=== PATIENT | male | born 1950 | race Caucasian/White ===

== ENCOUNTER 2020-07-13 09:03 | Emergency (ER) | payer OTHER, SELFPAY ==
[2020-07-13 09:04] VITALS: BP 152/88; PULSE 104; RESP 16; TEMP 36.3; O2SAT 96; BMI 25.1
[2020-07-13 09:05] VITALS: BP 152/88; PULSE 104; RESP 16; TEMP 36.3; O2SAT 96
--- NOTE | 2020-07-13 09:14 | RAD_ITS ---
STUDY: X-RAY CHEST REASON FOR EXAM: Male, 70 years old. Cough for 2 days, fever and shortness of breath. TECHNIQUE: Single AP portable view of the chest. COMPARISON: None. FINDINGS: The lungs are clear and expanded. There is no demonstrated pleural abnormality. Normal size heart. Normal mediastinum and ananya. Normal visualized pulmonary arteries. There is atherosclerotic calcification of the aortic arch with tortuosity. There are diffuse degenerative changes of the visualized thoracic spine. There is degenerative osteoarthritis of the bilateral shoulders worse on the left side. There is no demonstrated abnormality of the visualized soft tissue structures of the upper abdomen. RAD/Chest 1 View (Portable) IMPRESSION: No active pulmonary disease. Electronically Signed: Ryan Abarca MD at 10:16 EDT Tel , Service support ,
--- NOTE | 2020-07-13 09:16 | ED.DCSUM_ITS ---
- ER Visit Summary Date of Service: 07/13/20 Chief Complaint: Cough History of Present Illness: The patient is a [address] Guardado. He reports he has a cough began 1 week ago. It is nonproductive. He had a fever to 102 degrees. He also complains of chills and myalgias. He reports that he has shortness of breath that is moderate in severity. It is increased with coughing, exertion, or laying flat. Reports she has chest pain on the lower right that is 10 out of 10 at worst and 2 out of 10 currently. Increased with coughing. Patient denies any personal family history of DVT. However, he recently returned from [place]. He does report that he wears masks when he is out. He has had sick contacts as his is ill. He is unsure of [place] exposure. Physical Examination: Vitals: Stable. Afebrile. General: Well-nourished and well-developed. Head: Normocephalic atraumatic. Neck: Supple, no lymphadenopathy. No JVD. Nontender. Cardiovascular: Regular rate and rhythm. No murmurs. Respiratory: No respiratory distress. Clear to auscultation bilaterally. Abdominal: Soft, nontender, nondistended, normal bowel sounds. No guarding, rebound, or peritoneal signs. Back: Nontender. Extremities: Nontender, no edema. Skin: Normal color, no rash. Neurologic: Alert and oriented ?3. Cranial nerves II through XII are intact. Normal strength and sensation. Psych: Normal affect. Test Results: CBC shows a white count of 3.7 with 15 monocytes. Chem-7 shows a calcium of 8.4. Lactic acid is 1.6. D-dimer is 0.72 which is negative when corrected for his age. Clinical Impression(s) from Imaging Studies Chest X-Ray 07/13/20 09:14 IMPRESSION: No active pulmonary disease. Electronically Signed: Ryan Abarca MD at 10:16 EDT Tel , Service support , Emergency Department Course and Treatment: Patient refused testing for coronavirus. He is resting comfortably. I discussed the patient that he likely does have COVID-19. He does not want to be tested for this. He wants to go home and isolate himself. Treatment Plan: Instructed patient that he likely does have a COVID-19. He is instructed to quarantine. Return to the emergency department for worsening difficulty breathing. Otherwise follow-up with his primary care physician in 10 to 14 days if not improving. Disposition: To home in improved and stable condition. Impression: 1. URI, possible COVID-19 infection. This note was generated with [employer] dictation software. It may contain incorrect words, spelling, and punctuation that were not noted in review of the chart prior to signing ED Disposition - Plan for ED Patient: Instructions: ED Upper Resp Infec No Abx Tx Referrals: Shay Guardado MD [Primary Care Provider] - 10-14 Days if not better
[2020-07-13 09:38] LABS: Absolute Lymphocyte Count 0.82 X10^3/uL (0.83-4.51); Absolute Neutrophil Count 2.3 X10^3/uL (2.0-7.7); Basophil# 0.01 X10^3/uL; Basophil% 0.3 % (0-1); Hematocrit 42.8 % (40-54); Hemoglobin 13.7 g/dL (13.0-16.5); Lymphocyte # 0.82 X10^3/ul (4.0); Mean Corpuscular Hgb 28.9 pg (27.0-32.0); Mean Corpuscular Volume 90.3 fL (80-94); Mean Platelet Vol. 9.7 fl (6.2-12.0); Monocyte# 0.56 X10^3/uL; NRBC Flagged by Analyzer 0 % (0-5); Neutrophil # 2.32 X10^3/uL (2.7-7.7); Neutrophil % 62.2 % (47-70); Platelet Count 214 K/mm3 (150-450); RBC Distribution Width CV 13.6 % (11.6-14.6); RBC Distribution Width SD 45.6 fl (35.1-43.9); Red Blood Count 4.74 M/mm3 (4.6-6.2); White Blood Count 3.7 K/mm3 (4.4-11.0)
[2020-07-13 10:19] LABS: D-Dimer Quantitative (DVT/PE) 0.72 FEU/ug/m (0.27-0.49)
[2020-07-13 10:21] LABS: Anion Gap 5 (5-15); BUN 15 mg/dL (7-18); BUN/Creat Ratio 15.2 RATIO (10-20); Calcium,Total 8.4 mg/dL (8.5-10.1); Chloride 104 mmol/L (98-107); Creatinine, Serum 0.99 mg/dL (0.70-1.30); EST Glomerular Filtration Rate 79 mL/min (>60); Est Glom Filt Rate - Afr Amer 96 mL/min (>60); Estimated Creatinine Clearance 71.84 ml/min; Glucose 94 mg/dL (74-106); Lactic Acid 1.6 mmol/L (0.4-1.9); Potassium 4.3 mmol/L (3.5-5.1); Sodium Level 138 mmol/L (136-145)
[2020-07-13 11:29] VITALS: PULSE 87; RESP 16; O2SAT 97
== END 2020-07-13 11:30 | disposition home or self-care (01) ==
LOC: ED 09:54
PROVIDERS: Emergency Provider Emergency Medicine; PCP Family Medicine
DX: J06.9 Acute upper respiratory infection, unspecified (principal); R19.7 Diarrhea, unspecified; Z20.828 Contact with and (suspected) exposure to other viral communicable diseases
CPT/HCPCS: 71045; 80048; 83605; 85025; 85379; 99284; A4216

== ENCOUNTER 2020-08-29 07:01 | Day surgery (SDC) | payer SELFPAY, OTHER ==
[2020-08-29 07:17] VITALS: BP 132/90; PULSE 99; RESP 18; TEMP 37.1; O2SAT 99; BMI 29.9
[2020-08-29] MEDS: Lactated Ringers 1,000 ML 100 ML IV (07:32)
--- NOTE | 2020-08-29 08:30 | COLBX_PTH ---
PATIENT: RONALDO BARRERA LOC: EN U#:[id number] AGE/SX: 70/M ROOM: RE08/29/[address]: Dr. Moustapha Mota MD : 1950 BED: DIS: 08/29/2020 SPEC #: [id number] RECD: 08/29/20 12:03 STATUS: NESSA TERESA #: [id number] SAM: 08/29/20 08:[address]: Moustapha Mota DEPT: SURGICAL PATHOLOGY RECD BY: Nelda Goldstein ENTERED: 08/29/20 13:00 SP TYPE: COLON BX OTHR DR: Dr. Shay Guardado MD Tissues: Descending colon Procedures: Surgery Specimen Level IV HEADER OPERATION: Colonoscopy - open access (MAC) PRE-OP DIAGNOSIS: Screening TISSUE SUBMITTED: Descending colon polyp MICROSCOPIC DIAGNOSIS Descending colon polyp, biopsy: Tubular adenoma. AM:vikki 09/01/20 MICROSCOPIC DESCRIPTION Slides are reviewed. GROSS DESCRIPTION Received in fixative is one container labeled with the patient's name and designated descending colon polyp. The specimen consists of multiple irregular fragments of light borjas soft tissue that in aggregate measure 0.7 x 0.3 x 0.1 cm. The specimen is totally submitted in one cassette. / AM:vikki 08/31/20 TC:5 CPT: 08164
--- NOTE | 2020-08-29 08:39 | HP_ITS ---
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 Moustapha Mota MD) Smoking Status: Former smoker HPI HPI HPI: RONALDO BARRERA, is a 70 M who presents to the office today for HPI HPI Surgical H&P: Yes HPI: RONALDO BARRERA, is a 70 M who presents to the office today for History of colon polyps. The patient had a colonoscopy in 2017 and had 3 adenomatous polyps. Patient is not having any blood in his stool or abdominal pain. Patient recently had symptoms suggestive of Covid at the beginning of July. At the current time patient still has some lingering cough but he is not having any fevers or fatigue at this time. ROS General General: Yes fatigue; no weight change, appetite, colon cancer, breast cancer or weakness HEENT HEENT: No difficulty swallowing, eye injury, eye surgery, swollen glands or hoarseness Endo Endocrine: No thyroid disease, diabetes mellitus, thyroid cancer, Hair loss, heat intolerance or cold intolerance Musc Musculoskeletal: Yes back problems; no arthritis, rheumatoid arthritis, gout or joint pain Cardio Cardiovascular: No murmur, pacemaker, heart disease, atrial fibrillation, high blood pressure, heart attack, heart stent, palpitations, shortness of breat with exertion or chest pain Psych Psychiatric: No depression, anxiety or hearing voices Resp Respiratory: No shortness of breath, No sleep apnea, No cough, No COPD, No asthma, No emphysema, No wheezing Gastro Gastrointestinal: No abdominal pain, No nausea or vomiting, No diarrhea, No constipation, No blood in stool, No acid reflux, No hemorrhoids, No ulcers, No gallbladder problem, No black,tarry stools Andrea Hematologic: No blood thinners, No blood disorders, No bleeding, No anemia, No blood clots Neuro Neurologic: No weakness Exam Const General: cooperative Orientation: alert, oriented x3 Resp Effort & Inspection: normal respiratory effort Auscultation: clear to auscultation bilaterally Cardio Rate: regular rate Rhythm: regular rhythm Heart Sounds: no murmurs GI Inspection: non-distended Palpation: soft, nontender Assessment & Plan Problems 1. History of adenomatous polyp of colon Z86.010 Plan Patient had 3 tubular adenomas back in 2016 and repeat colonoscopy was recommended for 3 years. Patient is not complaining of any Abdominal pain or blood in his stool. The patient recently had symptoms suggestive of Covid but did not have a positive test at that time. I recommend performing a colonoscopy in the middle of August as this will be at least 28 days from the time of his sickness. Patient will have Covid testing before procedure. I explained endoscopy in detail to the patient. I explained the risks including but not limited to stroke or heart attack with anesthesia, perforation of the GI tract, bleeding, infection. I explained that any of these could necessitate further emergency surgery. The patient understands and all questions were answered sufficiently. The patient wishes to proceed with procedure. We discussed the current risks associated with COVID-19. While it is understood that there is a community spread of COVID-19, the risk of kristel COVID-19 while at [facility] ([facility]) is very low; however, the risk cannot be completely mitigated because of the community spread of the disease. We discussed in detail the risk of exposure to and/or potential harm posed by the COVID-19 virus with having a surgery/procedure at this time versus the risk of delaying the surgery/procedure. It is not possible to know either the risk of delaying the surgery or procedure or chance of getting an infection with perfect accuracy, but a joint decision was made to proceed at this time with the scheduled surgery/procedure as indicated on the consent form. Patient was notified that we will need to comply with any screening or testing [facility] wishes to perform or that surgery may be delayed for any positive results. Moustapha Mota MD Pager: [facility] [address] [place] [address] [address] [place] [address] Office: Orders Orders: Colonoscopy Today Z86.010 Coding Level of Care Code Off vis,est,level 3 Diagnoses History of adenomatous polyp of colon Z86.010 I have re-examined the patient. There are no clinical changes since date of exam.
--- NOTE | 2020-08-29 08:46 | OP.CCLET_ITS ---
08/29/2020 Shay Guardado [address] [place] [address] Re : Colonoscopy procedure for Adam Jamesyer Dear Dr. Guardado This procedure was performed on Saturday, August 29, 2020. My impressions and recommendations are as follows: Impressions : - One small polyp in the descending colon, removed with a hot snare. Resected and retrieved. - The examination was otherwise normal on direct and retroflexion views. Recommendations : - Discharge patient to home. - Resume previous diet. - Continue present medications. - Await pathology results. - Repeat colonoscopy in 5 years for surveillance. My findings are described in the full procedure note, which is enclosed. If I can be of further assistance, please feel free to contact me at Doctor phone number(s): , Work: . Sincerely, Moustapha Mota MD 08/29/2020 8:45:57 AM This report has been signed electronically.
--- NOTE | 2020-08-29 08:46 | OP.COLON_ITS ---
Patient Name: Adam Garza Procedure Date: 08/29/2020 8:22 AM Date of : 1950 Age: 70 Procedure: Colonoscopy Indications: High risk colon cancer surveillance: Personal history of multiple (3 or more) adenomas Providers: Moustapha Mota MD Referring MD: Shay Guardado Medicines: Monitored Anesthesia Care Patient Profile: This is a 70 year old male. Refer to note in patient chart for documentation of history and physical. Last Colonoscopy: 3 years ago. Complications: No immediate complications. Estimated blood loss: Minimal. Procedure: Pre-Anesthesia Assessment: - Prior to the procedure, a History and Physical was performed, and patient medications and allergies were reviewed. The patient's tolerance of previous anesthesia was also reviewed. The risks and benefits of the procedure and the sedation options and risks were discussed with the patient. All questions were answered, and informed consent was obtained. Prior Anticoagulants: The patient has taken no previous anticoagulant or antiplatelet agents. After reviewing the risks and benefits, the patient was deemed in satisfactory condition to undergo the procedure. After I obtained informed consent, the scope was passed under direct vision. Throughout the procedure, the patient's blood pressure, pulse, and oxygen saturations were monitored continuously. The colonoscope was introduced through the anus and advanced to the cecum, identified by appendiceal orifice and ileocecal valve. The colonoscopy was performed without difficulty. The patient tolerated the procedure well. The quality of the bowel preparation was good. Scope In: 8:29:40 AM Scope Withdrawal Time 0 hours 7 minutes 18 seconds Scope Out: 8:42:46 AM Total Procedure Duration Time 0 hours 13 minutes 6 seconds Findings: A small polyp was found in the descending colon. The polyp was removed with a hot snare. Resection and retrieval were complete. The exam was otherwise without abnormality on direct and retroflexion views. Impression: - One small polyp in the descending colon, removed with a hot snare. Resected and retrieved. - The examination was otherwise normal on direct and retroflexion views. Recommendation: - Discharge patient to home. - Resume previous diet. - Continue present medications. - Await pathology results. - Repeat colonoscopy in 5 years for surveillance. Procedure Code(s): --- Professional --- 07584, Colonoscopy, flexible; with removal of tumor(s), polyp(s), or other lesion(s) by snare technique Diagnosis Code(s): --- Professional --- Z86.010, Personal history of colonic polyps D12.4, Benign neoplasm of descending colon CPT copyright 2017 [employer]. All rights reserved. The codes documented in this report are preliminary and upon polisher aluminum review may be revised to meet current compliance requirements. Moustapha Mota MD 08/29/2020 8:45:57 AM This report has been signed electronically. Number of Addenda: 0 Note Initiated On: 08/29/2020 8:22 AM
[2020-08-29 08:48] VITALS: BP 102/74; BP 132/90; PULSE 82; RESP 16; TEMP 36.8; O2SAT 98
[2020-08-29 08:50] VITALS: BP 113/85; BP 132/90; PULSE 84; RESP 16; O2SAT 97
[2020-08-29 08:55] VITALS: BP 119/83; BP 132/90; PULSE 79; RESP 16; O2SAT 96
[2020-08-29 09:00] VITALS: BP 117/82; BP 132/90; PULSE 77; RESP 16; TEMP 36.6; O2SAT 96
[2020-08-29 09:19] VITALS: BP 132/90
== END 2020-08-29 09:20 | disposition home or self-care (01) ==
LOC: EN 07:02 → AC 07:03
PROVIDERS: PCP Family Medicine; Referring Provider Family Medicine; Visit Provider Surgery
PROC: 0DJD8ZZ Inspection of Lower Intestinal Tract, Via Natural or Artificial Opening Endoscopic (ICD-10-PCS; CPT 45378; principal; 2020-08-29 08:25)
DX: D12.4 Benign neoplasm of descending colon (principal); Z86.010 Personal history of colon polyps; Z87.891 Personal history of nicotine dependence
CPT/HCPCS: 45385; 87426; 88305; C9803; J7120; J1610; J2405

== ENCOUNTER → 2020-12-30 12:19 | Outpatient (CLI) | payer SELFPAY, OTHER ==
--- NOTE | 2020-12-30 12:21 | RAD_ITS ---
INDICATION: FACET ARTHROPATHY -- left knee pain goes up into the left hip and left back EXAMINATION/TECHNIQUE: X-RAY - XR Spine Lumbar 2 or 3 Views COMPARISON: None. FINDINGS: VERTEBRAE: Preserved vertebral body height. No fracture. 5 mm of anterolisthesis of L5 on S1. Preservation of the normal lumbar lordosis. Facet hypertrophic arthropathy. Mild dextroscoliosis centered at L2. DISCS: Disc spaces are narrow. INCLUDED ABDOMEN: Included bowel gas pattern is non-obstructive. RAD/Lumbar Spine 2 or 3 Views IMPRESSION: Mild dextroscoliosis with diffuse degenerative disc disease with 5 mm of anterolisthesis of L5 on S1. Electronically Signed: Anson Watkins MD at 7:20 EDT Tel , Service support ,
== END ==
PROVIDERS: PCP Family Medicine; Referring Provider Family Medicine; Visit Provider Family Medicine
DX: M47.819 Spondylosis without myelopathy or radiculopathy, site unspecified (principal)
CPT/HCPCS: 72100

== ENCOUNTER → 2021-01-15 15:25 | Outpatient (CLI) | payer OTHER, SELFPAY ==
[2021-01-15 18:44] LABS: PSA,Total - Annual Screen 1.43 ng/mL (0.00-4.00)
== END ==
PROVIDERS: PCP Family Medicine; Referring Provider Family Medicine; Visit Provider Family Medicine
DX: Z12.5 Encounter for screening for malignant neoplasm of prostate (principal)
CPT/HCPCS: 36415; 84153; G0103

== ENCOUNTER → 2023-01-31 | Outpatient (CLI) | payer OTHER, SELFPAY ==
[2023-01-31 10:41] LABS: Absolute Lymphocyte Count 1.39 X10^3/uL (0.83-4.51); Absolute Neutrophil Count 3.7 X10^3/uL (2.0-7.7); Basophil# 0.04 X10^3/uL; Basophil% 0.7 % (0-1); Eosinophil# 0.18 X10^3/uL; Erythrocyte Sedimentation Rate 9 mm/hr (0-20); Hematocrit 44.7 % (40-54); Hemoglobin 14.4 g/dL (13.0-16.5); Lymphocyte # 1.39 X10^3/ul (0.83-4.51); Lymphocyte % 23.5 % (19-41); Mean Corp Hgb Conc 32.2 g/dL (32-36); Mean Corpuscular Hgb 28.9 pg (27.0-32.0); Mean Corpuscular Volume 89.6 fL (80-94); Mean Platelet Vol. 9.8 fl (6.2-12.0); Monocyte# 0.57 X10^3/uL; Monocyte% 9.6 % (0-10); NRBC Flagged by Analyzer 0 % (0-5); Neutrophil % 62.7 % (47-70); Platelet Count 286 K/mm3 (150-450); RBC Distribution Width CV 13.7 % (11.6-14.6); Red Blood Count 4.99 M/mm3 (4.6-6.2); White Blood Count 5.9 K/mm3 (4.4-11.0)
[2023-01-31 10:55] LABS: Hemoglobin A1c 5.9 % (3.8-5.6)
[2023-01-31 10:58] LABS: AST(SGOT) 14 U/L (15-37); Alanine Aminotransfer ALT/SGPT 19 U/L (16-61); Albumin, Serum 3.3 g/dL (3.2-5.0); Alkaline Phosphatase 78 U/L (45-117); Anion Gap 3 (5-15); BUN 16 mg/dL (7-18); CRP < 2.90 mg/L (0.0-3.0); Calcium,Total 8.5 mg/dL (8.5-10.1); Chloride 107 mmol/L (98-107); Creatinine, Serum 0.84 mg/dL (0.70-1.30); EST Glomerular Filtration Rate 95 mL/min (>60); Est Glom Filt Rate - Afr Amer 114 mL/min (>60); Globulin 3.4 g/dL (2.2-4.2); Glucose 95 mg/dL (74-106); Potassium 4.2 mmol/L (3.5-5.1); Protein, Total 6.7 g/dL (6.4-8.2); Sodium Level 137 mmol/L (136-145); Uric Acid 5.4 mg/dL (3.5-7.2)
[2023-02-01 13:08] LABS: ANTINUCLEAR ANTIBODIES DIRECT Negative (Negative)
[2023-02-08 12:09] LABS: HLA B27 Negative (.)
== END | disposition home or self-care (01) ==
LOC: LAB 09:50
PROVIDERS: PCP Family Medicine; Referring Provider Podiatrist; Visit Provider Podiatrist
DX: M79.674 Pain in right toe(s) (principal)
CPT/HCPCS: 36415; 80053; 81374; 83036; 84550; 85025; 85652; 86038; 86140

== ENCOUNTER → 2023-04-01 | Outpatient (CLI) | payer SELFPAY, OTHER ==
--- NOTE | 2023-04-01 12:43 | RAD_ITS ---
EXAM: XR CHEST, 2 VIEWS CLINICAL INDICATION: PRE OP TECHNIQUE: Frontal and lateral views of the chest. COMPARISON: 07/13/2020 FINDINGS: LUNGS AND PLEURAL SPACES: Unremarkable. No consolidation or edema. No pneumothorax. No effusion. HEART: Unremarkable. Cardiac silhouette not enlarged. MEDIASTINUM: Central airways and mediastinal contour are unremarkable. BONES/JOINTS: Unremarkable. SOFT TISSUES: Unremarkable. RAD/Chest PA and Lateral IMPRESSION: No radiographic evidence of acute cardiopulmonary disease. Electronically Signed: Matthew Rosenberg MD at 23:59 EDT ,
[2023-04-01 13:42] LABS: Hemoglobin 13.5 g/dL (13.0-16.5); Mean Corp Hgb Conc 32.1 g/dL (32-36); Mean Corpuscular Hgb 28.7 pg (27.0-32.0); Mean Corpuscular Volume 89.2 fL (80-94); Mean Platelet Vol. 9.8 fl (6.2-12.0); Platelet Count 285 K/mm3 (150-450); RBC Distribution Width CV 14.3 % (11.6-14.6); RBC Distribution Width SD 46.5 fl (35.1-43.9); Red Blood Count 4.71 M/mm3 (4.6-6.2); White Blood Count 6.8 K/mm3 (4.4-11.0)
[2023-04-01 13:44] LABS: Anion Gap 4 (5-15); BUN 24 mg/dL (7-18); BUN/Creat Ratio 27.6 RATIO (10-20); Calcium,Total 8.6 mg/dL (8.5-10.1); Chloride 108 mmol/L (98-107); Creatinine, Serum 0.87 mg/dL (0.70-1.30); EST Glomerular Filtration Rate 91 mL/min (>60); Est Glom Filt Rate - Afr Amer 110 mL/min (>60); Glucose 99 mg/dL (74-106); Potassium 3.8 mmol/L (3.5-5.1); Sodium Level 141 mmol/L (136-145)
== END | disposition home or self-care (01) ==
LOC: PSN 12:23
PROVIDERS: PCP Family Medicine; Referring Provider Orthopaedic Surgery; Visit Provider Orthopaedic Surgery
DX: Z01.818 Encounter for other preprocedural examination (principal); Z01.811 Encounter for preprocedural respiratory examination
CPT/HCPCS: 36415; 71046; 80048; 85027; 93005

== ENCOUNTER → 2023-11-16 | Outpatient (CLI) | payer OTHER, SELFPAY ==
[2023-11-16 10:04] LABS: Absolute Lymphocyte Count 1.94 X10^3/uL (0.83-4.51); Absolute Neutrophil Count 3.2 X10^3/uL (2.0-7.7); Basophil# 0.05 X10^3/uL; Basophil% 0.8 % (0-1); Eosinophil# 0.23 X10^3/uL; Eosinophils% 3.7 % (0-5); Hematocrit 43.8 % (40-54); Hemoglobin 14.1 g/dL (13.0-16.5); Lymphocyte # 1.94 X10^3/ul (0.83-4.51); Lymphocyte % 31.4 % (19-41); Mean Corp Hgb Conc 32.2 g/dL (32-36); Mean Corpuscular Hgb 28.9 pg (27.0-32.0); Mean Corpuscular Volume 89.8 fL (80-94); Mean Platelet Vol. 9.7 fl (6.2-12.0); Monocyte# 0.75 X10^3/uL; Monocyte% 12.1 % (0-10); NRBC Flagged by Analyzer 0 % (0-5); Neutrophil # 3.19 X10^3/uL (2.7-7.7); Neutrophil % 51.7 % (47-70); Platelet Count 290 K/mm3 (150-450); RBC Distribution Width CV 14.2 % (11.6-14.6); RBC Distribution Width SD 46.7 fl (35.1-43.9); Red Blood Count 4.88 M/mm3 (4.6-6.2); White Blood Count 6.2 K/mm3 (4.4-11.0)
[2023-11-16 11:37] LABS: ALB/GLOB Ratio 1.1 RATIO (0.9-2.4); AST(SGOT) 13 U/L (15-37); Alanine Aminotransfer ALT/SGPT 18 U/L (16-61); Albumin, Serum 3.5 g/dL (3.2-5.0); Alkaline Phosphatase 74 U/L (45-117); Anion Gap 3 (5-15); BUN 31 mg/dL (7-18); BUN/Creat Ratio 37.9 RATIO (10-20); Calcium,Total 9.2 mg/dL (8.5-10.1); Chloride 106 mmol/L (98-107); Creatinine, Serum 0.82 mg/dL (0.70-1.30); EST Glomerular Filtration Rate 98 mL/min (>60); Est Glom Filt Rate - Afr Amer 118 mL/min (>60); Globulin 3.3 g/dL (2.2-4.2); Glucose 89 mg/dL (74-106); Potassium 3.7 mmol/L (3.5-5.1); Protein, Total 6.8 g/dL (6.4-8.2); Sodium Level 136 mmol/L (136-145)
== END | disposition home or self-care (01) ==
LOC: MFPLAB 09:24
PROVIDERS: PCP Family Medicine; Visit Provider Family Medicine
DX: Z01.818 Encounter for other preprocedural examination (principal)
CPT/HCPCS: 36415; 80053; 85025

== ENCOUNTER → 2023-11-22 | Outpatient (CLI) | payer SELFPAY, OTHER ==
--- OUTSIDE RECORDS SUMMARY | 2023-11-22 06:05 | XMS RPT_ITS | CCD ---
Author Name Unknown Address [address] [place] [address] Organization [facility] Care Team Providers Care Tibco Developer Name Role Phone RIGOBERTO SALGADO DR Attending Unavailable RIGOBERTO SALGADO DR Primary Care Unavailable RIGOBERTO SALGADO DR Admitting Unavailable Results Test Name Value Interpretation Reference Range Facil ity Encounters Encounter Date Encounter Type Care Provider Facility Start: 04-11-2023 End: 04-11-2023 ambulatory [facility] Payers Date Payer Category Payer Unknown [id number] Unknown [id number] Summary Purpose Family History No Family History Records Found Advance Directives No Advanced Directives Records Found Additional Source Comments (unrecognized sect ion and content) No Status Records Found INFORMATION SOURCE (unrecogn ized section and content) FOR RECORDS PERTAINING TO PATIENTS WHO ARE OR HAVE BEEN ENROLLED IN A CHEMICAL DEPENDENCY/SUBSTANCEABUSE PROGRAM, SOME INFORMATION MAY BE OMITTED. This clinical summary was aggregated from multiple sources. Caution should be exercised in using it in the provision of clinical care. This summary normalizes information from multiple sources, and as a consequence, information in this document may materially change the coding, format and clinical context of patient data. In addition, data may be omitted in some cases. CLINICAL DECISIONS SHOULD BE BASED ON THE PRIMARY CLINICAL RECORDS. [employer] provides no warranty or guarantee of the accuracy or completeness of information in this document.
--- NOTE | 2023-11-23 13:09 | STRESSREP_ITS ---
Stress Test Report Date: 11/23/2023 Procedure: Exercise tolerance test/imaging study Indications: Preoperative evaluation Consent: Per the patient Procedure: The patient exercised on a Hira protocol for 6 minutes achieving a peak heart rate of 148 bpm (102% predicted maximal heart rate) with a peak blood pressure 164/82 mmHg and a peak MET capacity of 7 METs. The baseline ECG demonstrated normal sinus rhythm. The peak exercise ECG demonstrated no significant ischemic changes. EKG during recovery revealed no significant ischemic changes [There were no cardiac dysrhythmias pretest, during exercise, or recovery]. The functional capacity was considered very good for age. There was [no complaint of chest discomfort during exercise or recovery]. The examination was discontinued secondary to achieving target heart rate. Impression: 1. Technically adequate (percent predicted maximal heart rate greater than 85%) exercise tolerance test 2. Stress test is negative for exercise-induced EKG changes of ischemia 3. The test test is negative for exercise-induced chest pain 4. Functional capacity is very good for age 5. Nuclear images pending Myocardial perfusion imaging study: Technique: The patient was injected with 11.6 mCi of technetium 99m Cardiolite and subsequently rest SPECT Cardiolite nuclear imaging was obtained in the horizontal long, vertical long, and short axis views. The patient exercised on a Hira protocol. Please see above for details. The patient was injected with 31.5 mCi of technetium 99m Cardiolite and subsequently stress SPECT Cardiolite nuclear imaging was obtained in the horizontal long, vertical long, and short axis views. A gated Cardiolite study at peak stress was obtained. Interpretation: Rest and stress SPECT Cardiolite nuclear imaging status post realignment, normalization, and attenuation correction, demonstrates no evidence of significant ischemia or infarction. The gated Cardiolite study demonstrates no significant regional wall motion abnormalities. The reported LVEF is greater than 70%. Impression: 1. There is no evidence of significant ischemia or infarction. 2. The gated Cardiolite study reports an LVEF of greater than 70%. This note was generated with [employer] software. It may contain incorrect words, spelling, and punctuation that were not noted in checking the note before signing.
== END | disposition home or self-care (01) ==
PROVIDERS: PCP Family Medicine; Referring Provider Nurse Practitioner Family; Visit Provider Nurse Practitioner Family
DX: R94.31 Abnormal electrocardiogram [ECG] [EKG] (principal)
CPT/HCPCS: 78452; 93017; A9500; A4216

== ENCOUNTER 2024-02-03 09:00 | Outpatient (RCR) | payer SELFPAY, OTHER ==
--- NOTE | 2023-12-12 14:23 | HP.PTEVAL_ITS ---
Patient's Visit Information Visit Information Visit Information: RONALDO BARRERA is a 73 year old M referred to Physical Therapy by Dr. Pasuqale Spears MD with a diagnosis of R TKR 12/06/23. Date of Evaluation: 12/12/23 Physical Therapist: CARMENZA Orellana Visit Plan Frequency: 2-3x /Week Duration: 2 Months Plan: 2X-3X/ week for 8 weeks for R knee AROM, PROM, AAROM, gait training, stairs, strength with HEP HEP: towel gastroc stretch, QS, Heel slides (chair and supine), SLR, AP Subjective Subjective: Pt had a R TKR on 12-06-23. He is using a rolling walker. He is putting down full weight as much as he can stand but he does not trust his leg. He has stairs at home to get in and out of the house with 2 railing. He is sleeping good in a recliner. Pain R knee pain: Pain Intensity (Out of 10): 4 Pain Intensity Range: 8 Comment: with pain meds Objective Objective: Gait: walks with rolling walker with decrease R knee flexion and decrease stance time on the R LE. Walks with almost a straight knee with gait R knee AROM -5 knee ext and 85 knee flexion L knee AROM: 0 120 LE MMT R knee flex 7.5 and R knee ext 6.6 R knee infrapatella 39.5, mid patella 47, 6 suprapatella 53.2 Incision looks good with no signs of infection but he does have what seems to be an alergic reaction to the tape as he has 2 long vertical strips of reddness that are on either side of the patella about 2 inches away from center incision Balance/Special Test Scores WOMAC Total Score: 50 WOMAC Percentatge: 47.9200 Goals Goal 1:: I HEP Goal Time Frame: 4-6 Weeks Goal 2:: Increase R knee AROM 0-125 degrees flexion Goal Time Frame: 6-8 Weeks Goal 3:: Be able to walk without an AD and without an antalgic gait Goal Time Frame: 6-8 Weeks Goal 4:: Be able to go up and down steps recip with 1 hand rail without hesitation Goal Time Frame: 6-8 Weeks Rehabilitation Potential Rehabilitation Potential: Good Anticipated Interventions Patient/Client Instruction: Educate patient on: Condition and Plan of Care For the Purpose of:: To decrease pain, To decrease swelling/inflammation, To increase ROM, To improve nutrient delivery to tissue, To improve muscle performance and motor function, To improve ability to perform ADL's, To increase tolerance to activity/condition/position, To decrease level of supervision to perform tasks, To improve ability of physical actions for home/community/work/leisure, To improve gait and locomotor functions, To improve health of tissue, To decrease soft tissue restriction and To increase flexibility/ROM Therapeutic Exercise to Include: Strength training, Endurance training, Flexibilty training, Gait and locomotor training, Neuromotor development, Passive ROM and Active ROM For the Purpose of:: To decrease pain, To decrease swelling/inflammation, To increase ROM, To improve nutrient delivery to tissue, To improve muscle performance and motor function, To improve ability to perform ADL's, To increase tolerance to activity/condition/position, To improve performance and independence with ADL's, To decrease level of supervision to perform tasks, To improve ability of physical actions for home/community/work/leisure, To improve gait and locomotor functions, To improve health of tissue, To decrease soft tissue restriction, To increase flexibility/ROM and To improve endurance Functional Training to Include: Gait training For the Purpose of:: To improve gait and locomotor functions Manual Therapy Techniques to Include: Mobilization, Passive ROM and Soft tissue mobilization For the Purpose of:: To decrease pain, To decrease swelling/inflammation, To in crease ROM, To improve nutrient delivery to tissue and To improve muscle performance and motor function Cryotherapy (ice pack, ice massage): Yes For the Purpose of:: To decrease pain, To decrease swelling/inflammation, To increase ROM and To improve nutrient delivery to tissue Text: Thank you for the opportunity to evaluate your patient. For Medicare and Medicare HMO plans, please review the plan of care and approve it. It will need to be FAXED BACK to us at [phone] for Medicare purposes. For Medicare only, by signing this I certify the plan of care. Please let me know if there are questions or concerns regarding this plan of care. Physician Signature: Date:
--- NOTE | 2024-01-16 09:30 | HP.PTREVAL_ITS ---
Re-Evaluation Intro: Dr. Pasquale Spears MD, It has been my pleasure to treat RONALDO BARRERA over the last 10 visits for R TKR 12/06/23. Please see the progress note below for an update on the physical therapy plan of care! Subjective Subjective: Pt reports that the last few days have been rough. He thought he was doing well until the last few days. Pt struggles getting his leg out and over the bathtub Objective Objective/Function: Stairs: up and down recip with 1 hand rail with some hesitancy and tends to get off the R side in a hurry Gait: walks with decrease stance time on the R LE R knee AROM: -3 to 115 degrees Struggles with hip flexion getting on and off machines and onto a higher step (tends to swing outward) Plan Plan Plan: Add hurdles stepping up and over and up and over lateral to help get over the tub edge 2X-3X/ week for 8 weeks for R knee AROM, PROM, AAROM, gait training, stairs, strength with HEP HEP: towel gastroc stretch, QS, Heel slides (chair and supine), SLR, AP Balance/Gait/Functional tests Balance/Special Test Scores Lower Extremity Functional Score: 53 30 Second Chair Rise Test Seconds: 12 WOMAC Total Score: 50 WOMAC Percentage: 47.9200 Goals Goals Goal 1:: I HEP Goal Time Frame: 4-6 Weeks Goal Progress: Progressing Goal 2:: Increase R knee AROM 0-125 degrees flexion Goal Time Frame: 6-8 Weeks Goal Progress: Progressing Goal 3:: Be able to walk without an AD and without an antalgic gait Goal Time Frame: 6-8 Weeks Goal Progress: Progressing Goal 4:: Be able to go up and down steps recip with 1 hand rail without hesitation Goal Time Frame: 6-8 Weeks Goal Progress: Progressing Goal 5:: Be able to step over the tub using his leg out to the side to get over the tub with ease Anticipated Interventions Anticipated Interventions Patient/Client Instruction: Educate patient on: Condition and Plan of Care For the Purpose of:: To decrease pain, To decrease swelling/inflammation, To inc rease ROM, To improve nutrient delivery to tissue, To improve muscle performance and motor function, To improve ability to perform ADL's, To increase tolerance to activity/condition/position, To decrease level of supervision to perform tasks, To improve ability of physical actions for home/community/work/leisure, To improve gait and locomotor functions, To improve health of tissue, To decrease soft tissue restriction and To increase flexibility/ROM Therapeutic Exercise to Include: Strength training, Endurance training, Flexibilty training, Gait and locomotor training, Neuromotor development, Passive ROM and Active ROM For the Purpose of:: To decrease pain, To decrease swelling/inflammation, To increase ROM, To improve nutrient delivery to tissue, To improve muscle performance and motor function, To improve ability to perform ADL's, To increase tolerance to activity/condition/position, To improve performance and independence with ADL's, To decrease level of supervision to perform tasks, To improve ability of physical actions for home/community/work/leisure, To improve gait and locomotor functions, To improve health of tissue, To decrease soft tissue restriction, To increase flexibility/ROM and To improve endurance Functional Training to Include: Gait training For the Purpose of:: To improve gait and locomotor functions Manual Therapy Techniques to Include: Mobilization, Passive ROM and Soft tissue mobilization For the Purpose of:: To decrease pain, To decrease swelling/inflammation, To increase ROM, To improve nutrient delivery to tissue and To improve muscle performance and motor function Cryotherapy (ice pack, ice massage): Yes For the Purpose of:: To decrease pain, To decrease swelling/inflammation, To increase ROM and To improve nutrient delivery to tissue Re-Evaluation Ending Re-evaluation ending: Please do not hesitate to contact me at [phone] by phone or if you have questions or concerns regarding this new plan of care! Sincerely, Kylie Owens, MPT
--- NOTE | 2024-02-21 11:57 | HP.PTDCSUM ---
Discharge Summary D/C summary: It has been my pleasure to treat RONALDO BARRERA referred by Dr. Pasquale Spears MD, with the diagnosis of R TKR 12/06/23 for a total of 14 visit(s). Discharge Date: 02/03/24 Please see the following information for a summary of their discharge status. Subjective Subjective: Pt reports that his pain is much better from him hurting his knee. Pain R knee pain: Pain Intensity (Out of 10): 0 Overall Improvement % Improvement: 100 Objective Objective/Function: Stairs: up and down recip with 1 hand rail Gait: walks with slightly decrease stance time on the R LE R knee AROM 0-125 R knee flexion MMT 10.6 R knee ext MMT 26.5 Goals Goal 1:: I HEP Goal Progress: Goal Met Goal 2:: Increase R knee AROM 0-125 degrees flexion Goal Progress: Goal Met Goal 3:: Be able to walk without an AD and without an antalgic gait Goal Progress: Progressing Goal 4:: Be able to go up and down steps recip with 1 hand rail without hesitation Goal Progress: Goal Met Goal 5:: Be able to step over the tub using his leg out to the side to get over the tub with ease Goal Progress: Goal Met Plan Plan: 2X-3X/ week for 8 weeks for R knee AROM, PROM, AAROM, gait training, stairs, strength with HEP HEP: towel gastroc stretch, QS, Heel slides (chair and supine), SLR, AP D/C Information Discharge Comments: DC PT to HEP d/c sentence: If there are questions or concerns regarding this patient's physical therapy, please feel free to call me at [phone]. Thank you for the referral of this patient. Sincerely, Kylie Owens, MPT Balance/Gait/Functional tests Balance/Special Test Scores Oswestry Low Back Score: 38 Lower Extremity Functional Score: 53 30 Second Chair Rise Test Seconds: 12 WOMAC Total Score: 4 WOMAC Percentage: 95.6600 Improvement % Improvement: 100
== END 2024-02-03 19:00 | disposition home or self-care (01) ==
LOC: PT 09:00
PROVIDERS: PCP Family Medicine; Referring Provider Orthopaedic Surgery; Visit Provider Orthopaedic Surgery
DX: Z96.651 Presence of right artificial knee joint (principal)
CPT/HCPCS: 97110; 97161; 97530

== ENCOUNTER → 2025-03-05 | Outpatient (CLI) | payer SELFPAY, OTHER ==
--- NOTE | 2025-03-05 17:09 | MRI_ITS ---
PROCEDURE: LOWER EXT JOINT ONLY (ROUTINE) 03/05/2025 REASON FOR EXAM: LEFT LEG PAIN, BENIGN NEOPLASM OF LONG BONES TECHNIQUE: T1, T2, stir, MRI of the left ankle. Multiplanar and multisequence images were obtained without IV contrast administration. COMPARISON: COMPARISON : None FINDINGS: Bone Marrow: There is a 1.7 by 1.4 x 1.0 cm circumscribed mixed T1, mixed T2 signal lesion in the distal tibial metaphysis, with features of an enchondroma. 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 There is a 0.6 cm developing osteochondral defect in the superior medial talar dome with no free fragment. Effusion: There is a large effusion of the tibiotalar articulation, and posterior subtalar joint. Soft Tissues: There is mild distal Achilles tendinopathy without full-thickness tear. Plantar fascia appears intact. There is increased T2 signal and attenuation of the distal tibiofibular ligaments without laxity, grade 2 sprains. There is thickening and attenuation of the anterior talofibular ligament without laxity, grade 2 sprain. The posterior talofibular ligament appears intact. The deltoid ligament complex appears intact. There is increased fluid signal in the sinus tarsi with diffuse soft tissue edema within the sinus. The cervical ligament and intermediate and lateral roots of the inferior extensor retinaculum show increased T2 signal and are not well-defined, consistent with sprains. There is mild increased fluid in the posterior tibial tendon sheath without tendon tear or retraction, mild tenosynovitis. The flexor digitorum and flexor hallucis appear intact. The peroneal tendons appear intact. MRI/Lower Ext Joint Only (Routine) IMPRESSION: There is a 1.7 by 1.4 x 1.0 cm circumscribed mixed T1, mixed T2 signal lesion i n the distal tibial metaphysis, with features of an enchondroma. 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 There is a 0.6 cm developing osteochondral defect in the superior medial talar dome with no free fragment. There is a large effusion of the tibiotalar articulation, and posterior subtala r joint. There is mild distal Achilles tendinopathy without full-thickness tear. There is increased T2 signal and attenuation of the distal tibiofibular ligamen ts without laxity, grade 2 sprains. There is thickening and attenuation of the anterior talofibular ligament withou t laxity, grade 2 sprain. There is increased fluid signal in the sinus tarsi with diffuse soft tissue raisa ma within the sinus. The cervical ligament and intermediate and lateral roots of the inferior extensor retinaculum show increa sed T2 signal and are not well-defined, consistent with sprains. 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 There is mild increased fluid in the posterior tibial tendon sheath without ten don tear or retraction, mild tenosynovitis. Reading Location: [facility]
== END | disposition home or self-care (01) ==
LOC: MRI 16:53
PROVIDERS: PCP Family Medicine; Referring Provider Podiatrist; Visit Provider Podiatrist
DX: D16.22 Benign neoplasm of long bones of left lower limb (principal); M79.605 Pain in left leg
CPT/HCPCS: 73721